=== PATIENT | female | born 2005 | race Hispanic/Latino ===

== ENCOUNTER 2025-04-08 00:25 | Emergency (ER) | payer OTHER ==
[2025-04-08] MEDS ORDERED: Fluorescein Opthalmic Strip ONE (01:19)
[2025-04-08] MEDS ORDERED: Boostrix 0.5 ML (Tdap) VIAL (>/=7 yrs of age) ONE (01:19)
[2025-04-08] MEDS ORDERED: Proparacaine 0.5% Opth 15 ML BOT ONE (01:19)
== END 2025-04-08 02:25 | disposition home or self-care (01) ==
LOC: ERS 00:25
DX: S05.01XA Injury of conjunctiva and corneal abrasion without foreign body, right eye, initial encounter (principal); X58.XXXA Exposure to other specified factors, initial encounter
CPT/HCPCS: 90471; 90715